=== PATIENT | female | born 1935 | race Two or more races ===

== ENCOUNTER 2020-03-25 18:15 | Emergency (ER) | payer OTHER ==
[~2020-03-25] VITALS: Ht 162.6 cm; Wt 68.0 kg
[2020-03-25] MEDS ORDERED: ZYRTEC10 M3 (18:46)
[2020-03-25] MEDS ORDERED: IBANDRONATE SO150 MG (18:47)
[2020-03-25] MEDS ORDERED: EVISTA60 MG (18:47)
== END 2020-03-25 23:45 | disposition home or self-care (01) ==
LOC: ER 18:15
DX: N39.0 Urinary tract infection, site not specified (principal); R10.2 Pelvic and perineal pain; N93.8 Other specified abnormal uterine and vaginal bleeding

== ENCOUNTER 2020-05-09 06:00 | Day surgery (SDC) | payer OTHER ==
[~2020-05-09 06:00] MED LIST: ENALAP PO; EVISTA60 MG; IBANDRONATE SO150 MG; OMEPRAZ PO; ROSUVASTA PO; ZYRTEC10 M3
[2020-05-09] MEDS ORDERED: MACROBID 100 M100 MG PO (11:03)
[2020-05-09] MEDS ORDERED: ULTRACET PO (11:03)
== END 2020-05-09 15:40 | disposition home or self-care (01) ==
LOC: CIR.AMB 06:00
PROVIDERS: ATTEND Obstetrics & Gynecology Gynecology
DX: N81.3 Complete uterovaginal prolapse (principal); Z20.828 Contact with and (suspected) exposure to other viral communicable diseases